=== PATIENT | female | born 1995 | race Two or more races ===

== ENCOUNTER 2021-02-27 09:07 | Emergency (ER) | payer MEDICAID, OTHER ==
[~2021-02-27] VITALS: Ht 154.9 cm; Wt 121.1 kg
[2021-02-27] MEDS ORDERED: LORAZEPAM 0.5 MG TABLET PO ONE (09:30)
[2021-02-27] MEDS ORDERED: ACETAMINOPHEN 325 MG TABLET PO ONE (09:30)
[2021-02-27] MEDS ORDERED: LORAZEPAM 0.5 MG TABLET ONE (09:41)
[2021-02-27] MEDS ORDERED: ACETAMINOPHEN 325 MG TABLET ONE (09:41)
[2021-02-27] MEDS ORDERED: HYDR-500 GT (09:43)
[2021-02-27] MEDS ORDERED: BUSP15TA3 PO (09:43)
--- NOTE | 2021-02-27 10:09 | NUR ---
PT WAS EVALUATED BY DR BENAVIDEZ. PT WAS D/C'd TO HOME. D/C INSTRUCTIONS GIVEN TO THE PT BY DR BENAVIDEZ.
[2021-02-27 10:10] VITALS: BP 131/75
== END 2021-02-27 10:10 | disposition home or self-care (01) ==
LOC: ER 09:11
DX: F41.0 Panic disorder [episodic paroxysmal anxiety] (principal); R51.9 Headache, unspecified; E66.9 Obesity, unspecified; Z68.43 Body mass index [BMI] 50.0-59.9, adult; F31.9 Bipolar disorder, unspecified; Z79.899 Other long term (current) drug therapy
CPT/HCPCS: A4663